=== PATIENT | female | born 1960 ===

== ENCOUNTER 2016-11-18 16:27 | Emergency (ER) | payer OTHER ==
[2016-11-18 16:37] VITALS: TEMP 98.2; O2SAT 98
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
[2016-11-18 18:28] VITALS: BP 125/68; PULSE 70; RESP 17
== END 2016-11-18 18:27 | disposition home or self-care (01) ==
LOC: EDBD 16:27 → C.ER 16:27
DX: M79.601 Pain in right arm (principal); M54.9 Dorsalgia, unspecified; V49.49XA Driver injured in collision with other motor vehicles in traffic accident, initial encounter; Y92.410 Unspecified street and highway as the place of occurrence of the external cause